=== PATIENT | male | born 1965 | race African-American/Black ===

== ENCOUNTER 2018-02-15 09:53 | Day surgery (SDC) | payer OTHER ==
[~2018-02-15] VITALS: Ht 180.3 cm; Wt 86.6 kg
[2018-02-15] MEDS ORDERED: DESYREL 50MG50 MG PO (10:13)
[2018-02-15 10:14] VITALS: BP 121/90; PULSE 69; TEMP 97.3
[2018-02-15] MEDS ORDERED: MINIPRESS 1M1 MG/CAP PO (10:14)
[2018-02-15 11:12] VITALS: BP 125/93; PULSE 87; TEMP 97.9
[2018-02-15 11:25] VITALS: BP 121/89; PULSE 81
[2018-02-15 11:40] VITALS: BP 122/92; PULSE 72
== END 2018-02-15 12:05 | disposition home or self-care (01) ==
LOC: SDCO 09:53
DX: Z12.11 Encounter for screening for malignant neoplasm of colon (principal); E11.9 Type 2 diabetes mellitus without complications
CPT/HCPCS: J2250; J3010; J7030